=== PATIENT | female | born 1990 | race Caucasian/White ===

== ENCOUNTER 2018-05-20 11:39 | Emergency (ER) | payer OTHER ==
[~2018-05-20] VITALS: Ht 167.6 cm; Wt 74.8 kg
[2018-05-20] MEDS ORDERED: HYDPAM50 PO (12:01)
[2018-05-20] MEDS ORDERED: ALBU90OI61 INH (12:02)
[2018-05-20] MEDS ORDERED: LIDO700A20 TOP (12:18)
== END 2018-05-20 12:33 | disposition home or self-care (01) ==
LOC: ER 11:39
DX: G89.29 Other chronic pain (principal); M54.5 Low back pain; F17.290 Nicotine dependence, other tobacco product, uncomplicated; Z79.899 Other long term (current) drug therapy
CPT/HCPCS: 96372; 99282; J1885